=== PATIENT | female | born 1970 | race Caucasian/White ===

== ENCOUNTER 2019-12-31 15:50 | Outpatient (CLI) | payer BC ==
[2019-12-31] MEDS ORDERED: ACET325T14 PO (17:00)
[2019-12-31] MEDS ORDERED: LORA-445 PO (17:00)
[2019-12-31] MEDS ORDERED: NAPR220C2 PO (17:00)
[2019-12-31] MEDS ORDERED: IBUP-1623 PO (17:00)
[2019-12-31] MEDS ORDERED: MULT-252 PO (17:00)
[2019-12-31] MEDS ORDERED: LISI1TAB39 PO (17:00)
[2019-12-31 17:06] LABS: BASOPHILS % (AUTO) 1 % (0-1); EOSINOPHILS % (AUTO) 4 % (1-7); LYMPHOCYTES % (AUTO) 25 % (22-44); MEAN CORPUSCULAR HEMOGLOBIN 30.6 pg (27.0-34.8); MEAN CORPUSCULAR HGB CONC 33.2 g/dL (32.4-35.8); MEAN PLATELET VOLUME 7.7 fL (7.4-10.4); MONOCYTES % (AUTO) 8 % (2-9); NEUTROPHILS % (AUTO) 63 % (42-75); PLATELET COUNT 338 x10^3/uL (130-400); RED BLOOD COUNT 4.38 x10^6/uL (3.82-5.3)
[2019-12-31 17:07] LABS: MD NO
[2019-12-31 17:17] LABS: ALANINE AMINOTRANSFERASE 32 U/L (12-78); ALBUMIN 3.9 g/dL (3.4-5.0); ANION GAP 4 mmol/L (5-15); CALCIUM 8.9 mg/dL (8.5-10.1); CHLORIDE 105 mmol/L (98-107); CREATININE 0.75 mg/dL (0.55-1.02)
[2019-12-31 17:22] LABS: ALKALINE PHOSPHATASE 113 U/L (45-117); BILIRUBIN,TOTAL 0.6 mg/dL (0.2-1.0); TOTAL PROTEIN 8.5 g/dL (6.4-8.2)
[2019-12-31 17:22] LABS: MICROSCOPIC AUTO
== END 2019-12-31 23:59 | disposition home or self-care (01) ==
LOC: STAR 15:50
PROVIDERS: ATTEND Obstetrics & Gynecology Gynecology
DX: Z01.818 Encounter for other preprocedural examination (principal); R10.2 Pelvic and perineal pain; N94.5 Secondary dysmenorrhea; N39.3 Stress incontinence (female) (male)
CPT/HCPCS: 80053; 81001; 84703; 85025; 87077; 87086; 87147; 87635

== ENCOUNTER 2020-01-04 10:28 | Day surgery (SDC) | payer BC ==
[~2020-01-04] VITALS: Ht 162.6 cm; Wt 89.2 kg
[~2020-01-04 10:28] MED LIST: ACET325T14 PO; IBUP-1623 PO; INDIGO CARMINE 0.8%, 5ML ONE; LIDOCAINE/PF 1%-EPI 1:200K, 30 ML ONE; LISI1TAB39 PO; LORA-445 PO; MULT-252 PO; NAPR220C2 PO; NEOMY/POLYMYXIN B GU IRR. 1 ML ONE
[2020-01-04] MEDS ORDERED: DEXAMETHASONE 4 MG/ML, 1ML ONE (10:46)
[2020-01-04] MEDS ORDERED: FENTANYL PF 250 MCG/5ML ONE (10:46)
[2020-01-04] MEDS ORDERED: MIDAZOLAM 1 MG/ML, 5ML ONE (10:46)
[2020-01-04] MEDS ORDERED: LIDOCAINE-MPF 2% ,5ML ONE (10:46)
[2020-01-04] MEDS ORDERED: GLYCOPYRROLATE 0.2MG/1ML, 5ML ONE (10:46)
[2020-01-04] MEDS ORDERED: PROPOFOL 10 MG/ML, 20ML ONE (10:46)
[2020-01-04] MEDS ORDERED: ROCURONIUM 10 MG/ML,10ML ONE (10:46)
[2020-01-04] MEDS ORDERED: CHLORHEXIDINE 15 ML UDC ONE (11:15)
[2020-01-04] MEDS ORDERED: LIDOCAINE-MPF 1%, 2ML ONE (11:20)
[2020-01-04 11:47] LABS: HCG UR SG 1.023 (1.003-1.030)
[2020-01-04] MEDS ORDERED: CHLORHEXIDINE 15 ML UDC MM ONE (12:00)
[2020-01-04] MEDS ORDERED: LIDOCAINE-MPF 1%, 2ML INFIL ONE (12:00)
[2020-01-04] MEDS ORDERED: LACTATED RINGERS 1,000 ML IV SCH (12:00)
[2020-01-04] MEDS ORDERED: LIDOCAINE 1%, 20ML ONE (12:10)
[2020-01-04] MEDS ORDERED: INDIGO CARMINE 0.8%, 5ML ONE (12:10)
[2020-01-04] MEDS ORDERED: EPINEPHRINE 1 MG/ML, 1ML ONE (12:10)
[2020-01-04] MEDS ORDERED: EPHEDRINE 50 MG/ML, 1ML IM PRN (12:30)
[2020-01-04] MEDS ORDERED: LABETALOL 5MG/ML, 20ML IV PRN (12:30)
[2020-01-04] MEDS ORDERED: LORazepam 2 MG/ML, 1ML IVPush PRN (12:30)
[2020-01-04] MEDS ORDERED: MEPERIDINE/PF 25MG/0.5ML IVPush PRN (12:30)
[2020-01-04] MEDS ORDERED: ONDANSETRON 2MG/ML, 2ML IVPush PRN (12:30)
[2020-01-04] MEDS ORDERED: MIDAZOLAM 1 MG/ML, 2ML IV PRN (12:30)
[2020-01-04] MEDS ORDERED: ALBUTEROL/IPRATROPIUM 2.5MG/0.5MG, 3 ML NPPB PRN (12:30)
[2020-01-04] MEDS ORDERED: KETOROLAC 30 MG/1 ML IVPush PRN (12:30)
[2020-01-04] MEDS ORDERED: HYDROcodone/APAP 7.5-325MG/15ML UDC PO PRN (12:30)
[2020-01-04] MEDS ORDERED: DIAZEPAM 5 MG/ML, 2ML IVPush PRN (12:30)
[2020-01-04] MEDS ORDERED: METOCLOPRAMIDE 5 MG/ML, 2ML IVPush PRN (12:30)
[2020-01-04] MEDS ORDERED: HALOPERIDOL 5 MG/ML IV PRN (12:30)
[2020-01-04] MEDS ORDERED: hydrALAzine 20 MG/ML, 1ML IV PRN (12:30)
[2020-01-04] MEDS ORDERED: DIPHENHYDRAMINE 50 MG/ML, 1ML IVPush PRN (12:30)
[2020-01-04] MEDS ORDERED: HYDROmorphone 1 MG/ML, 1ML INJ IVPush PRN (12:30)
[2020-01-04] MEDS ORDERED: EPHEDRINE 50 MG/ML, 1ML IVPush PRN (12:30)
[2020-01-04] MEDS ORDERED: ACETAMINOPHEN 325 MG TABLET PO PRN (12:30)
[2020-01-04] MEDS ORDERED: METHOCARBAMOL 1,000 MG in DEXTROSE 5% 100 ML IV PRN (12:30)
[2020-01-04] MEDS ORDERED: FENTANYL PF 100 MCG/2ML ONE ×2 (14:54→15:11)
[2020-01-04] MEDS: FENTANYL PF 100 MCG/2ML IV PRN ×5 (14:55→15:56)
[2020-01-04] MEDS ORDERED: ACETAMINOPHEN 650 MG/20.3 ML UDC ONE (15:00)
[2020-01-04] MEDS ORDERED: OXYcodone 5 MG/5 ML ORAL.SOL UDC ONE (15:00)
[2020-01-04] MEDS ORDERED: KETOROLAC 30 MG/1 ML ONE (15:00)
[2020-01-04] MEDS: OXYcodone 5 MG/5 ML ORAL.SOL UDC PO PRN ×2 (15:06→17:44)
== END 2020-01-04 18:15 | disposition home or self-care (01) ==
LOC: OUT 10:28
PROVIDERS: ATTEND Obstetrics & Gynecology Gynecology
DX: N39.3 Stress incontinence (female) (male) (principal); D25.1 Intramural leiomyoma of uterus; N80.0 Endometriosis of uterus; N94.5 Secondary dysmenorrhea; F41.9 Anxiety disorder, unspecified; I10 Essential (primary) hypertension; E66.9 Obesity, unspecified; Z79.899 Other long term (current) drug therapy; Z68.33 Body mass index [BMI] 33.0-33.9, adult; Z91.030 Bee allergy status; Z98.890 Other specified postprocedural states; Z20.828 Contact with and (suspected) exposure to other viral communicable diseases
CPT/HCPCS: 36415; 57288; 58260; 81025; 85014; 87635; 88307; C1771; J1100; J1885; J2250; J2704; J2800; J3010; J7120; J0171

== ENCOUNTER → 2020-07-10 | Outpatient (CLI) | payer BC ==
[~2020-07-10] MED LIST changes: -INDIGO CARMINE 0.8%, 5ML ONE; -LIDOCAINE/PF 1%-EPI 1:200K, 30 ML ONE; -NEOMY/POLYMYXIN B GU IRR. 1 ML ONE
== END | disposition home or self-care (01) ==
LOC: CFH 14:53
PROVIDERS: ATTEND Internal Medicine
DX: Z12.31 Encounter for screening mammogram for malignant neoplasm of breast (principal)
CPT/HCPCS: 77063; 77067